=== PATIENT | female | born 1950 | race Caucasian/White ===

== ENCOUNTER → 2017-02-06 | Outpatient (CLI) | payer MEDICARE, OTHER ==
--- NOTE | 2017-02-06 12:25 | KCIC ---
PROCEDURE Two-view chest. HISTORY Endometrial cancer, right breast cancer with lumpectomy and radiation COMPARISON None FINDINGS Two views of the chest are submitted. There is no infiltrate, pleural fluid, pneumothorax. Heart size is considered within normal limits. There are right axillary clips present. No significant noncalcified pulmonary nodularity is identified by radiographs. IMPRESSION 1. There is no evidence of acute cardiopulmonary disease. CT would be more sensitive for detection of pulmonary nodules. Electronically signed by: Pete Ardon MD (Feb 06, 2017 12:23:45)
--- NOTE | 2017-02-07 09:34 | KCIC ---
Bilateral digital screening mammograms with CAD: HISTORY COMPARISON Comparison is made to previous studies dated back to 07/02/2014. FINDINGS Breast density category B. The skin and nipples show no abnormalities. No abnormal lymph nodes are seen in the axilla. The breast parenchyma shows scattered fibroglandular density. There are postop changes present in the right breast with some residual architectural distortion and contour deformity. In the left breast there are small parenchymal densities calcifications probably reflecting degenerating fibroadenoma which are unchanged. There is also however a small circumscribed nodule developing laterally in the left breast at the 2 o'clock B position measuring approximately 8.2 millimeters in greatest dimension. Further evaluation with ultrasound is recommended. There are no other new dominant masses, suspicious calcifications or architectural distortions. Benign appearing calcifications are present IMPRESSION Postop changes in the right breast. 8.2 millimeter circumscribed nodule at the 2 o'clock B position of the left breast. Recommend further evaluation with ultrasound. This study was interpreted with the benefit of Computerized Aided Detection (CAD). Mammography is not 100% sensitive in detecting breast cancer. Therefore, a self breast exam and a clinical breast exam are very important. A negative mammogram does not negate a clinically suspicious finding and should not result in a delay in biopsying a clinically suspicious abnormality. BI-RADS category 0: Incomplete. Ultrasound followup is recommended. This patient's information has been entered into a reminder system for the patient to be notified with the results of this examination and a target date for her next mammograms. Electronically signed by: Zina Beckman MD (Feb 07, 2017 09:32:36)
== END | disposition home or self-care (01) ==
LOC: KCIC MAMMO 11:11
PROVIDERS: ATTEND Internal Medicine
DX: Z12.31 Encounter for screening mammogram for malignant neoplasm of breast (principal); Z85.42 Personal history of malignant neoplasm of other parts of uterus
CPT/HCPCS: 71020; G0202; 77067

== ENCOUNTER → 2017-02-15 | Outpatient (CLI) | payer MEDICARE, OTHER ==
--- NOTE | 2017-02-15 13:08 | KCIC ---
Left breast ultrasound: Reason for examination: Nodular density on screening mammogram. Comparison is made to mammographic examination dated 02/06/2017. Ultrasound examination of the left breast was performed in the area of mammographic concern. In the 2 o'clock position 7 centimeters from the nipple and corresponding to the area of mammographic concern, there is a 8.1 millimeter hypoechoic lesion which is well-circumscribed and in parallel orientation. There is suggestion of some increased echogenicity centrally. The overall appearance suggests a possible intramammary lymph node. Differential would include a fibroadenoma or focal fibrocystic nodule. No suspicious appearing nodules are seen. No abnormal appearing lymph nodes are seen in the axilla. Impression: 8.1 millimeter nodule with a benign appearance possibly representing of intramammary lymph node or a small fibroadenoma. Recommend close followup however with re-evaluation with ultrasound in 3 months. BI-RADS category 3: Probably benign. This patient's information has been entered into a reminder system for the patient to be notified with the results of this examination and a target date for her next mammograms. Electronically signed by: Zina Beckman MD (Feb 15, 2017 13:05:29)
== END | disposition home or self-care (01) ==
LOC: KCIC US 10:19
PROVIDERS: ATTEND Internal Medicine
DX: R92.8 Other abnormal and inconclusive findings on diagnostic imaging of breast (principal)
CPT/HCPCS: 76641

== ENCOUNTER → 2017-08-18 | Outpatient (CLI) | payer MEDICARE, OTHER ==
--- NOTE | 2017-08-18 15:47 | KCIC ---
Left breast ultrasound: Reason for examination: Follow-up nodule. Comparison is made to previous study dated 02/15/2017. Ultrasound examination of the left breast was performed with attention to the 2:00 position. A hypoechoic septated nodule consistent with septated cyst is present at the 2:00 position 7 cm from the nipple. This does not show significant interval change. No other cystic or solid lesions are seen. No abnormal appearing lymph nodes are seen in the axilla. IMPRESSION: Benign-appearing fibrocystic lesion in the 2:00 position with no significant interval change. Recommend routine bilateral mammograms. BI-RADS Category 2: Benign. "Our facility is accredited by the [employer] Mammography [employer]." This patient's information has been entered into a reminder system for the patient to be notified with the results of her examination and a target date for the next mammogram. Electronically signed by: Vannesa Beckman MD (08/18/2017 3:43 PM) [id number]
== END | disposition home or self-care (01) ==
LOC: KCIC US 11:53
PROVIDERS: ATTEND Internal Medicine
DX: R92.8 Other abnormal and inconclusive findings on diagnostic imaging of breast (principal)
CPT/HCPCS: 76641

== ENCOUNTER → 2018-02-06 | Outpatient (CLI) | payer MEDICARE, OTHER | END | disposition home or self-care (01) | LOC: KCIC 10:58 | DX: C54.1 Malignant neoplasm of endometrium (principal); Z85.3 Personal history of malignant neoplasm of breast | CPT/HCPCS: 71046 ==

== ENCOUNTER → 2018-05-30 | Outpatient (CLI) | payer MEDICARE, OTHER | END | disposition home or self-care (01) | LOC: KCIC MAMMO 10:35 | DX: Z12.31 Encounter for screening mammogram for malignant neoplasm of breast (principal); Z85.42 Personal history of malignant neoplasm of other parts of uterus; Z85.3 Personal history of malignant neoplasm of breast | CPT/HCPCS: 77063; 77067 ==

== ENCOUNTER → 2019-07-09 | Outpatient (CLI) | payer MEDICARE, OTHER ==
--- NOTE | 2019-07-09 15:27 | KCIC ---
Indication: Postmenopausal screening for osteoporosis. COMPARISON: None available. Bone Density: -BMD: (g/cm2) - AP Spine Total (L1-L4).......... 1.197. - Total left Hip................. 1.010. T-Score: - AP Spine Total (L1-L4)......... 1.4. - Total left Hip................. 0.6. Z-Score: - AP Spine Total (L1-L4).......... 3.5. - Total left Hip................. 2.1. World Health Organization criteria for BMD interpretation classify patients as Normal (T-score at or above -1.0), Osteopenic (T-score between -1.0 and -2.5), or Osteoporotic (T-score at or below -2.5). Impression: 1. AP Spine Total L1-L4--- normal.. 2. Total left Hip--- normal.. Electronically signed by: Carlos Salvador MD (07/09/2019 3:23 PM) [place] [id number]
--- NOTE | 2019-07-09 17:46 | KCIC ---
Bilateral digital screening mammograms with 3-D tomosynthesis: Reason for examination: Routine screening. History of right breast cancer with lumpectomy. Comparison is made to previous studies dated 05/30/2018 and 02/06/2017. Bilateral mammograms in CC and oblique projections were obtained with 2-D imaging and 3-D tomosynthesis imaging on a Siemens Inspiration unit and reviewed on the workstation. Interpretation was made with the benefit of CAD. The skin and nipples show no abnormalities. No abnormal axillary lymph nodes are seen. The breast parenchyma shows scattered fatty and fibroglandular density. (Breast density: Category B.) There are postop changes present in the right breast. There continue to be nodules in the upper outer quadrant of the left breast which are stable. There appears too be a new nodular density at the 4:00 B position of the left breast. Further evaluation with coned compression views and ultrasound is recommended. There are no other new dominant, suspicious calcifications or architectural distortion. Benign calcifications are present. Impression: New 1 cm nodular density in the 4:00 B position of the left breast. Recommend further evaluation with coned compression views and ultrasound. BI-RAD Category 0: Incomplete. Needs additional imaging evaluation. "Our facility is accredited by the [employer] Mammography [employer]." This patient's information has been entered into a reminder system for the patient to be notified with the results of her examination and a target date for the next mammogram. Electronically signed by: Vannesa Beckman MD (07/09/2019 5:44 PM) [id number]
== END | disposition home or self-care (01) ==
LOC: KCIC DEXA 08:52
PROVIDERS: ATTEND Family Medicine
DX: Z12.31 Encounter for screening mammogram for malignant neoplasm of breast (principal); Z13.820 Encounter for screening for osteoporosis; N64.89 Other specified disorders of breast; N95.9 Unspecified menopausal and perimenopausal disorder
CPT/HCPCS: 77063; 77067; 77080

== ENCOUNTER → 2019-07-23 | Outpatient (CLI) | payer MEDICARE, OTHER ==
--- NOTE | 2019-07-23 15:52 | KCIC ---
Left breast diagnostic digital mammograms: Reason for examination: Nodular density on screening mammogram. Comparison is made to mammographic exam dated 07/09/2019. Coned compression views were obtained in CC and lateral projections. A nodule persists at the 4:00 B position with no associated calcification seen. Further evaluation with ultrasound will follow. IMPRESSION: Small nodular density persists in the 4:00 B position. Ultrasound to follow. BI-RADS Category 0: Incomplete. Needs additional imaging evaluation. Left breast ultrasound: Comparison is made to previous studies dated 08/18/2017 and 02/15/2017. Ultrasound examination was performed with attention to the area of mammographic concern and the left axilla. At the 2:00 position 7 cm from the nipple, there continues to be an 8.8 mm fibrocystic lesion. This appears to show a slight decrease in size. At the 4:00 position 9 cm from the nipple, there is a 9.7 mm hypoechoic fibrocystic lesion in parallel orientation which corresponds to the area of mammographic concern and shows no abnormal vascularity. No other cystic or solid lesions are identified. No abnormal appearing lymph nodes are seen in the axilla. IMPRESSION: Continued presence of a benign-appearing fibrocystic type lesion at the 2:00 position which shows a slight decrease in size. 9.7 mm benign-appearing hypoechoic fibrocystic type lesion at the 4:00 position 9 cm from the nipple which corresponds to the area of mammographic concern. Recommend 6 month follow-up with ultrasound. BI-RADS Category 3: Probably Benign. "Our facility is accredited by the [employer] Mammography [employer]." This patient's information has been entered into a reminder system for the patient to be notified with the results of her examination and a target date for the next mammogram. Electronically signed by: Vannesa Beckman MD (07/23/2019 3:49 PM) [facility]
== END | disposition home or self-care (01) ==
LOC: KCIC MAMMO 09:46
PROVIDERS: ATTEND Family Medicine
DX: N64.89 Other specified disorders of breast (principal)
CPT/HCPCS: 76641; 77065

== ENCOUNTER → 2019-12-25 | Outpatient (CLI) | payer MEDICARE, OTHER ==
--- NOTE | 2019-12-26 09:36 | KCIC ---
Examination: SHOULDER BILAT 2+V History: Bilateral shoulder pain Comparison/Correlation: None Findings: 3 images of the right shoulder and 3 images of the left shoulder were obtained. Right shoulder Advanced acromioclavicular joint degenerative narrowing with undersurface spurring is present. Glenohumeral joint relationship is unremarkable. No fracture or bone destruction. Right axillary surgical clips are present. Left shoulder Mild acromioclavicular joint degenerative narrowing is present with minimal undersurface spurring. Limited evaluation of the unremarkable. No fracture or bone destruction. Impression: Degenerative changes of the acromioclavicular joints slightly greater on the right. Electronically signed by: Reyes Gomez MD (12/26/2019 9:33 AM) [facility]
== END | disposition home or self-care (01) ==
LOC: KCIC 11:08
PROVIDERS: ATTEND Nurse Practitioner Family
DX: M19.011 Primary osteoarthritis, right shoulder (principal); M19.012 Primary osteoarthritis, left shoulder; M25.812 Other specified joint disorders, left shoulder; M25.811 Other specified joint disorders, right shoulder
CPT/HCPCS: 73030

== ENCOUNTER → 2020-08-11 | Outpatient (CLI) | payer MEDICARE, OTHER ==
--- NOTE | 2020-08-11 14:43 | KCIC ---
Bilateral diagnostic digital mammograms with 3-D tomosynthesis: Reason for examination: Chronic intermittent left breast pain. Comparison is made to previous studies dated back to 08/03/2016. Bilateral mammograms in CC and oblique projections were obtained with 2-D imaging and 3-D tomosynthesis imaging on a Siemens Inspiration unit and reviewed on the workstation. Interpretation was made with the benefit of CAD. The skin and nipples show no abnormalities. No abnormal axillary lymph nodes are seen. The breast parenchyma shows scattered fatty and fibroglandular density. (Breast density: Category B.) There are postop changes in the right breast. There continues to be a small circumscribed nodule at the 2:00 B position of the left breast. There has been a decrease in size of a small nodule at the 4:00 B position. There are 2 small circumscribed nodules in the 6:00 B and 7:00 a positions with no associated calcifications. There are no other new dominant masses, suspicious calcifications or architectural distortion. Benign calcifications are present. Impression: Postop changes in the right breast. No significant change in a small nodule at the 2:00 B position of the left breast. New nodules at the 6:00 B and 7:00 A positions of the left breast. Ultrasound to follow. BI-RAD Category 0: Incomplete. Needs additional imaging evaluation. Left breast ultrasound: Comparison is made to previous study dated 07/23/2019. Left whole breast ultrasound including evaluation of all 4 quadrants and the retroareolar and axillary regions of the left breast was performed. At the 2:30 position 6 cm from the nipple, there continues to be a 7 mm hypoechoic fibrocystic lesion which is stable. At the 6:00 retroareolar position, there is a 5.2 mm cyst. At the 7:00 position 3 cm from the nipple, there is a 6.4 mm cyst. No solid or suspicious-appearing nodules are seen. No abnormal appearing lymph nodes are seen in the axilla. IMPRESSION: No change in the small nodule at the 2:30 position. Small cyst at the 6:00 and 7:00 positions. No suspicious abnormality seen. Recommend routine mammographic follow-up. BI-RADS Category 2: Benign. "Our facility is accredited by the [employer] Mammography [employer]." This patient's information has been entered into a reminder system for the patient to be notified with the results of her examination and a target date for the next mammogram. Electronically signed by: Vannesa Beckman MD (08/11/2020 2:40 PM) [email or web address]
== END ==
LOC: KCIC MAMMO 12:27
PROVIDERS: ATTEND Internal Medicine
DX: N60.02 Solitary cyst of left breast (principal); N63.42 Unspecified lump in left breast, subareolar; N63.24 Unspecified lump in the left breast, lower inner quadrant; N63.21 Unspecified lump in the left breast, upper outer quadrant
CPT/HCPCS: 76641; 77066; G0279; 77062

== ENCOUNTER → 2021-08-27 | Outpatient (CLI) | payer MEDICARE, OTHER ==
--- NOTE | 2021-08-27 14:03 | KCIC ---
Bilateral digital screening mammograms with 3-D tomosynthesis: Reason for examination: Routine screening. History of right breast cancer with lumpectomy. Comparison is made to previous studies dated back to 08/20/2015. Bilateral mammograms in CC and oblique projections were obtained with 2-D imaging and 3-D tomosynthes is imaging on a Siemens Inspiration unit and reviewed on the workstation. Interpretation was made wit h the benefit of CAD. The skin and nipples show no abnormalities. No abnormal axillary lymph nodes are seen. The breast par enchyma shows scattered fatty and fibroglandular density. (Breast density: Category B.) There are pos toperative changes in the 12:00 position posteriorly in the right breast from previous lumpectomy. Me dially and inferiorly at the 4:00 position of the right breast there appears to be a new infiltrate o r nodule measuring approximately 8.5 mm in greatest dimension. Recommend further evaluation with ultr asound. In the left breast, there appear to be 2 small new circumscribed nodules measuring approximat jamila 4 mm and 4.6 mm in areas dimensions at approximately the 3:00 B and 5:00 C positions. These likel y represent cysts. There continue to be additional 6 nodules lateral left breast which are stable. Be nign calcifications are present bilaterally. Impression: Postop changes from lumpectomy the 12:00 position of the right breast. New 8.5 mm spiculated nodule at the 4:00 C position of the right breast 8.5 cm from the nipple. Recom mend further evaluation with ultrasound. Small new circumscribed nodules in the left breast at the 3:00 B position measuring 4 mm in size and at the 5:00 C position measuring 4.6 mm in size which probably represents cysts. Recommend further ev aluation with ultrasound. BI-RAD Category 0: Incomplete. Needs additional imaging evaluation. "Our facility is accredited by the [employer] Mammography Program." This patient's information has been entered into a reminder system for the patient to be notified wit h the results of her examination and a target date for the next mammogram. Electronically signed by: Vannesa Beckman MD (08/27/2021 2:01 PM) [email or web address]
== END ==
LOC: KCIC MAMMO 10:16
PROVIDERS: ATTEND Family Medicine
DX: Z12.31 Encounter for screening mammogram for malignant neoplasm of breast (principal)
CPT/HCPCS: 77063; 77067

== ENCOUNTER → 2021-09-22 | Outpatient (CLI) | payer MEDICARE, OTHER ==
--- NOTE | 2021-09-22 12:04 | KCIC ---
Bilateral breast ultrasound: Reason for examination: Nodules bilaterally on screening mammogram. History of right breast cancer wi th lumpectomy. Comparison is made to mammographic exam dated 08/27/2021 and previous right breast ultrasound dated 2 020. In the right breast at the 4:00 position 6 cm from the nipple, there appears to be a 7.1 x 5.8 mm spi culated hypoechoic nodule present. Further evaluation with ultrasound-guided biopsy is recommended. N o other cystic or solid nodules are seen and no abnormal appearing lymph nodes are seen in the right axilla. In the left breast, there is a benign-appearing 6.9 mm fibrocystic lesion at the 2:30 position 6 cm f rom the nipple. At the 3:00 position 7 cm from the nipple, there is a small benign-appearing 5.4 mm h ypoechoic fibrocystic type lesion present. At the 4:00 position 8 cm from the nipple, there is a 5.4 mm fibrocystic nodule. No suspicious-appearing nodules are seen. No abnormal appearing lymph nodes ar e seen in the left axilla. IMPRESSION: 5.8 mm hypoechoic spiculated nodule at the 4:00 position of the right breast 6 cm from the nipple. Ul trasound-guided biopsy is recommended. Benign-appearing fibrocystic lesions at the 2:30, 3:00 and 4:00 positions of the left breast. Recomme nd 6 month follow-up with ultrasound. BI-RADS Category 4: Suspicious. These findings have been discussed with the patient and Dr. Maryjo Hardy' medical billing associate, [employer] as notified about these findings via a message left on the answering machine available at [phone] on . "Our facility is accredited by the [employer] Mammography Program." This patient's information has been entered into a reminder system for the patient to be notified wit h the results of her examination and a target date for the next mammogram. Electronically signed by: Vannesa Beckman MD (09/22/2021 12:01 PM) [id number]
== END ==
LOC: KCIC US 07:49
PROVIDERS: ATTEND Family Medicine
DX: N63.14 Unspecified lump in the right breast, lower inner quadrant (principal); R92.2 Inconclusive mammogram
CPT/HCPCS: 76641